=== PATIENT | male | born 1980 | race Caucasian/White ===

== ENCOUNTER 2018-09-16 20:15 | Inpatient (IN) | payer MEDICAID, OTHER ==
[~2018-09-16] VITALS: Ht 172.7 cm; Wt 72.2 kg
[2018-09-16] MEDS ORDERED: ONDANSETRON 2MG/ML, 2ML IVPush ONE (20:30)
[2018-09-16] MEDS ORDERED: SODIUM CHLORIDE 0.9% 1,000ML IVBOLUS ONE (20:30)
[2018-09-16] MEDS ORDERED: MORPHINE SULFATE 4 MG/ML, 1ML ONE ×2 (20:35→22:18)
[2018-09-16] MEDS ORDERED: ONDANSETRON 2MG/ML, 2ML ONE (20:35)
[2018-09-16] MEDS: MORPHINE SULFATE 4 MG/ML, 1ML IVPush PRN ×2 (20:41→22:20)
[2018-09-16 20:49] LABS: BASOPHILS # (AUTO) 0.05 x10^3/uL (0-0.1); BASOPHILS % (AUTO) 1 % (0-1); EOSINOPHILS # (AUTO) 0.07 x10^3/uL (0-0.4); EOSINOPHILS % (AUTO) 1 % (1-7); LYMPHOCYTES # (AUTO) 2.51 x10^3/uL (1-3.4); LYMPHOCYTES % (AUTO) 30 % (22-44); MD NO; MEAN CORPUSCULAR HGB CONC 34.1 g/dL (33.2-36.2); MEAN PLATELET VOLUME 9.4 fL (7.4-10.4); MONOCYTES # (AUTO) 0.59 x10^3/uL (0.2-0.8); MONOCYTES % (AUTO) 7 % (2-9); NEUTROPHILS # (AUTO) 5.11 x10^3/uL (1.8-6.8); NEUTROPHILS % (AUTO) 61 % (42-75); O2 FLOW 0 L/min; PH, VENOUS 7.276 pH (7.320-7.420); PLATELET COUNT 252 x10^3/uL (130-400); RED BLOOD COUNT 4.76 x10^6/uL (4.38-5.82); RED CELL DISTRIBUTION WIDTH 13.9 % (9.4-14.8)
[2018-09-16] MEDS ORDERED: INSU100V8 SQ (20:54)
[2018-09-16] MEDS ORDERED: INSU100C5 SQ-INSULIN (20:54)
[2018-09-16 21:03] LABS: ALANINE AMINOTRANSFERASE 50 U/L (12-78); ALBUMIN 3.4 g/dL (3.4-5.0); ANION GAP 7 mmol/L (5-15); CALCIUM 8.1 mg/dL (8.5-10.1); CHLORIDE 105 mmol/L (98-107)
[2018-09-16 21:05] LABS: ACETONE, SERUM Negative (Negative); ALKALINE PHOSPHATASE 169 U/L (45-117); BILIRUBIN,TOTAL 0.3 mg/dL (0.2-1.0)
[2018-09-16] MEDS ORDERED: INSULIN REGULAR 100 UNITS/ML, 3ML VIAL ONE (21:18)
[2018-09-16] MEDS ORDERED: INSULIN REGULAR 100 UNITS/ML, 3ML VIAL IVPush ONE (21:30)
[2018-09-16 22:16] LABS: MICROSCOPIC NOT IND
[2018-09-16 22:22] LABS: CULTURE INDICATED? NO
[2018-09-17 00:22] VITALS: BP 116/74
[2018-09-17] MEDS ORDERED: POLYETHYLENE GLYCOL 17 GM PACKET PO PRN (00:30)
[2018-09-17] MEDS ORDERED: INSULIN GLARGINE 100 UNITS/ML, PEN SQ-INSULIN SCH ×2 (00:30→21:00)
[2018-09-17] MEDS ORDERED: ONDANSETRON ODT 4 MG PO PRN (00:30)
[2018-09-17] MEDS ORDERED: hydrALAzine 20 MG/ML, 1ML IVPush PRN (00:30)
[2018-09-17] MEDS ORDERED: DEXTROSE 50%, 50ML SYRINGE IVPush PRN (00:30)
[2018-09-17] MEDS ORDERED: PROMETHAZINE 25 MG/ML, 1ML IM PRN (00:30)
[2018-09-17] MEDS ORDERED: GLUCAGON 1 MG IM PRN (00:30)
[2018-09-17] MEDS ORDERED: ONDANSETRON 2MG/ML, 2ML IVPush PRN (00:30)
[2018-09-17] MEDS ORDERED: BISACODYL 10 MG SUPP PR PRN (00:30)
[2018-09-17] MEDS ORDERED: DOCUSATE 100 MG CAPSULE PO PRN (00:30)
[2018-09-17] MEDS ORDERED: DEXTROSE 4 GM TAB.CHEW PO PRN (00:30)
[2018-09-17] MEDS: ACETAMINOPHEN 325 MG TABLET PO PRN ×2 (01:30→05:09)
[2018-09-17] MEDS: SENNA/DOCUSATE TABLET PO SCH ×2 (01:30→09:44)
[2018-09-17] MEDS: SODIUM CHLORIDE 0.9% 1,000 ML IV SCH ×2 (01:30→09:44)
[2018-09-17] MEDS: HEPARIN 5,000 UNITS/ML, 1ML SQ SCH ×3 (01:49→16:30)
[2018-09-17 01:56] LABS: FREE T4 (FREE THYROXINE) 0.99 ng/dL (0.76-1.46); THYROID STIMULATING HORMONE 2.62 mIU/L (0.358-3.740)
[2018-09-17 05:53] LABS: BASOPHILS # (AUTO) 0.08 x10^3/uL (0-0.1); BASOPHILS % (AUTO) 1 % (0-1); EOSINOPHILS # (AUTO) 0.13 x10^3/uL (0-0.4); EOSINOPHILS % (AUTO) 2 % (1-7); LYMPHOCYTES # (AUTO) 3.04 x10^3/uL (1-3.4); LYMPHOCYTES % (AUTO) 35 % (22-44); MD NO; MEAN CORPUSCULAR HEMOGLOBIN 30.3 pg (27.5-34.5); MEAN CORPUSCULAR HGB CONC 34.5 g/dL (33.2-36.2); MEAN CORPUSCULAR VOLUME 87.6 fL (81-97); MEAN PLATELET VOLUME 9.2 fL (7.4-10.4); MONOCYTES # (AUTO) 0.64 x10^3/uL (0.2-0.8); MONOCYTES % (AUTO) 8 % (2-9); NEUTROPHILS # (AUTO) 4.72 x10^3/uL (1.8-6.8); NEUTROPHILS % (AUTO) 55 % (42-75); PLATELET COUNT 228 x10^3/uL (130-400); RED BLOOD COUNT 4.52 x10^6/uL (4.38-5.82); RED CELL DISTRIBUTION WIDTH 13.8 % (9.4-14.8)
[2018-09-17 06:08] LABS: ALANINE AMINOTRANSFERASE 42 U/L (12-78); ALBUMIN 3.2 g/dL (3.4-5.0); ANION GAP 7 mmol/L (5-15); CALCIUM 8.3 mg/dL (8.5-10.1); CHLORIDE 105 mmol/L (98-107); CHOLESTEROL, TOTAL 162 mg/dL (140-239); CREATININE 0.74 mg/dL (0.7-1.3)
[2018-09-17 06:10] LABS: ALKALINE PHOSPHATASE 123 U/L (45-117); BILIRUBIN,TOTAL 0.3 mg/dL (0.2-1.0); TOTAL PROTEIN 6.4 g/dL (6.4-8.2); TRIGLYCERIDES 123 mg/dL (50-200)
[2018-09-17 06:11] LABS: CHOL/HDL RATIO 3.5; HDL CHOL % 28 % (26-37); HDL CHOLESTEROL (DIRECT) 46 mg/dL (40-60); LDL CHOLESTEROL,CALCULATED 91 mg/dL (54-169); VLDL CHOLESTEROL 25 mg/dL (0-25)
[2018-09-17] MEDS: OXYcodone/APAP 5/325MG TABLET PO PRN ×3 (06:20→20:40)
[2018-09-17] MEDS: INSULIN LISPRO 100 UNITS/ML, PEN SQ-INSULIN SCH ×4 (07:36→21:32)
[2018-09-17 07:52] VITALS: BP 130/86
[2018-09-17] MEDS: SODIUM CHLORIDE FLUSH 10ML SYR IVF SCH ×2 (09:00→21:32)
[2018-09-17] MEDS ORDERED: INSULIN GLARGINE 100 UNITS/ML, PEN SQ-INSULIN ONE (10:30)
[2018-09-17 14:01] VITALS: BP 131/85
[2018-09-17] MEDS: KETOROLAC 30 MG/1 ML IVPush PRN ×2 (14:41→23:28)
[2018-09-17 18:52] VITALS: BP 121/78
[2018-09-18 00:15] VITALS: BP 127/85
[2018-09-18] MEDS: OXYcodone/APAP 5/325MG TABLET PO PRN ×3 (00:40→13:11)
[2018-09-18] MEDS: HEPARIN 5,000 UNITS/ML, 1ML SQ SCH ×2 (00:40→08:28)
[2018-09-18] MEDS: KETOROLAC 30 MG/1 ML IVPush PRN ×2 (06:32→13:11)
[2018-09-18 07:36] VITALS: BP 133/88
[2018-09-18] MEDS: INSULIN LISPRO 100 UNITS/ML, PEN SQ-INSULIN SCH ×2 (07:58→11:09)
[2018-09-18] MEDS: SODIUM CHLORIDE FLUSH 10ML SYR IVF SCH (09:00)
[2018-09-18] MEDS: SENNA/DOCUSATE TABLET PO SCH (09:38)
[2018-09-18] MEDS ORDERED: INSU100I13 SQ-INSULIN (10:41)
[2018-09-18] MEDS ORDERED: INSU100C SQ-INSULIN (10:41)
[2018-09-18] MEDS ORDERED: IBUP-1221 PO (10:41)
[2018-09-18 13:09] VITALS: BP 136/86
== END 2018-09-18 14:15 | DRG 639 ==
LOC: ED 20:33 → EDIP 21:58 → 4NOR 23:49
PROVIDERS: ADMIT Internal Medicine; ATTEND Internal Medicine
DX: E10.65 Type 1 diabetes mellitus with hyperglycemia (principal); K59.00 Constipation, unspecified; I10 Essential (primary) hypertension; N20.0 Calculus of kidney; R33.9 Retention of urine, unspecified; R01.1 Cardiac murmur, unspecified; E10.40 Type 1 diabetes mellitus with diabetic neuropathy, unspecified; Z82.3 Family history of stroke; Z79.4 Long term (current) use of insulin; Z83.3 Family history of diabetes mellitus; Z87.442 Personal history of urinary calculi; Z87.891 Personal history of nicotine dependence
CPT/HCPCS: 36415; 71045; 74176; 80053; 80061; 81003; 82010; 82803; 82962; 83036; 83690; 83735; 83930; 84100; 84439; 84443; 85025; 93005; 96374; 96375; 96376; G0378; J1644; J1885; J2405; Q0162; J1815; J7030

== ENCOUNTER 2018-10-19 18:11 | Inpatient (IN) | payer MEDICAID, OTHER ==
[~2018-10-19] VITALS: Ht 172.7 cm; Wt 70.6 kg
[~2018-10-19 18:11] MED LIST: IBUP-1221 PO; INSU100C SQ-INSULIN; INSU100C5 SQ-INSULIN; INSU100I13 SQ-INSULIN; INSU100V8 SQ
[2018-10-19] MEDS ORDERED: SODIUM CHLORIDE FLUSH 10ML SYR IVF ONE (18:30)
[2018-10-19] MEDS ORDERED: LIDOCAINE 1%, 10ML INFIL ONE (18:30)
[2018-10-19] MEDS ORDERED: DIPH,PERTUSS(ACELL),TET VAC/PF 0.5 ML IM-VACC ONE ×2 (18:30→21:31)
[2018-10-19] MEDS ORDERED: SODIUM CHLORIDE 0.9% 1,000ML IVBOLUS ONE ×2 (18:30→21:30)
--- NOTE | 2018-10-19 18:39 | NUR ---
VBG ON GLUCOMETER READING TO HIGH TO READ.
[2018-10-19 18:41] LABS: PH, VENOUS 7.377 pH (7.320-7.420)
[2018-10-19 18:43] LABS: BASOPHILS # (AUTO) 0.03 x10^3/uL (0-0.1); BASOPHILS % (AUTO) 0 % (0-1); EOSINOPHILS # (AUTO) 0.09 x10^3/uL (0-0.4); EOSINOPHILS % (AUTO) 1 % (1-7); LYMPHOCYTES # (AUTO) 2.25 x10^3/uL (1-3.4); LYMPHOCYTES % (AUTO) 24 % (22-44); MD NO; MEAN CORPUSCULAR HEMOGLOBIN 29.8 pg (27.5-34.5); MEAN CORPUSCULAR HGB CONC 34.4 g/dL (33.2-36.2); MEAN CORPUSCULAR VOLUME 86.4 fL (81-97); MEAN PLATELET VOLUME 9.8 fL (7.4-10.4); MONOCYTES % (AUTO) 7 % (2-9); NEUTROPHILS # (AUTO) 6.27 x10^3/uL (1.8-6.8); NEUTROPHILS % (AUTO) 68 % (42-75); O2 FLOW ROOM AIR L/min; PLATELET COUNT 252 x10^3/uL (130-400); RED BLOOD COUNT 5.18 x10^6/uL (4.38-5.82); RED CELL DISTRIBUTION WIDTH 13.6 % (9.4-14.8)
--- NOTE | 2018-10-19 18:43 | NUR ---
PT ARRIVES FROM HOME TODAY WITH INCREASED BG AND IN PAIN. PT REPORTS FEELING ILL FOR A FEW DAYS AND TODAY HIS PAIN IS WORSE AND IS HAVING BODY ACHES MORE OFTEN. PT REPROTS HE IS A TYPE 1 DIABETIC INSULIN NOT ON A PUMP CONTROLLED. PT REPORTS TAKING MEDICATIONS PERSCRIBED. PT CONNECTED TO MONITORS AND CALL LIGHT IN REACH. AWIAITNG FURTHER ORDERS.
[2018-10-19 18:55] LABS: ALANINE AMINOTRANSFERASE 27 U/L (12-78); ALBUMIN 3.4 g/dL (3.4-5.0); ANION GAP 5 mmol/L (5-15); CALCIUM 8.6 mg/dL (8.5-10.1); CHLORIDE 98 mmol/L (98-107); CREATININE 1.21 mg/dL (0.7-1.3)
[2018-10-19 18:57] LABS: ALKALINE PHOSPHATASE 174 U/L (45-117); BILIRUBIN,TOTAL 0.3 mg/dL (0.2-1.0); TOTAL PROTEIN 7.2 g/dL (6.4-8.2)
[2018-10-19] MEDS ORDERED: ONDANSETRON 2MG/ML, 2ML ONE (19:19)
[2018-10-19] MEDS ORDERED: MORPHINE SULFATE 4 MG/ML, 1ML ONE ×2 (19:19→21:30)
[2018-10-19] MEDS ORDERED: LIDOCAINE-MPF 1%, 5ML ONE (19:20)
[2018-10-19] MEDS: MORPHINE SULFATE 4 MG/ML, 1ML IV PRN ×2 (19:26→21:30)
[2018-10-19 19:28] LABS: ACETONE, SERUM Trace (10mg/dL) mg/dL (Negative)
[2018-10-19] MEDS ORDERED: ONDANSETRON 2MG/ML, 2ML IVPush ONE (19:30)
[2018-10-19] MEDS ORDERED: LIDOCAINE-MPF 1%, 5ML INFIL ONE (19:30)
[2018-10-19] MEDS ORDERED: INSULIN REGULAR 100 UNITS/ML, 3ML VIAL SQ-INSULIN ONE (19:30)
[2018-10-19] MEDS ORDERED: INSULIN REGULAR 100 UNITS/ML, 3ML VIAL ONE (19:33)
[2018-10-19 19:36] LABS: MICROSCOPIC NOT IND
[2018-10-19 19:38] LABS: CULTURE INDICATED? NO
[2018-10-19] MEDS ORDERED: INSULIN REGULAR 100 UNITS/ML, 3ML VIAL IVPush ONE (20:00)
--- NOTE | 2018-10-19 20:19 | NUR ---
REPORT TO LATANYA BROWN
--- NOTE | 2018-10-19 20:20 | NUR ---
Report from KEVIN Ly. Pt sleeping in [facility] at this time. NAD noted. Will continue to monitor.
--- NOTE | 2018-10-19 21:11 | NUR ---
FSBS completed. FSBS of 576. PAC aware of pt's continued elevated BS. Awaiting further orders.
--- NOTE | 2018-10-19 21:40 | NUR ---
PT MEDICATED FOR INCREASED MONZON PAIN. IVF STARTED. TETNUS SHOT GIVEN.
--- NOTE | 2018-10-19 22:16 | NUR ---
REPORT TO KEVIN HARMAN.
--- NOTE | 2018-10-19 22:35 | NUR ---
RECEIVED BEDSIDE REPORT FROM LATANYA BROWN. CARE ASSUMED. PT AND SIGNIFICANT OTHER LAYING IN BED TOGTHER. FSBS CHECKED, RESULT 568. CARLOS SAN AT BEDSIDE, AWARE, DISCUSSED FSBS WITH CARLOS SAN AND DR. PATEL, AWARE, AWAITING ADDITIONAL ORDERS. ALL MONITORS IN PLACE. VSS. SR ON MONITOR. PT A&OX4. CARLOS SAN REMAINS AT BEDSIDE. PT REQUESTING PAIN MEDICATION FROM CARLOS SAN FOR HEADACHE AND MOUTH PAIN, NO ORDERS RECEIVED AT THIS TIME. CALL LIGHT IN REACH. FALL PRECAUTIONS IN PLACE.
--- NOTE | 2018-10-19 23:15 | NUR ---
PT UP FOR RECHECK, DISCUSSED POC ANDRA SAN NO NEW ORDERS RECEIVED.
--- NOTE | 2018-10-19 23:48 | NUR ---
FSBS RECHECKED PER DR. PATEL, RESULTS 542, DISCUSSED WITH DR. PATEL, AWARE. AWAITING ADDITIONAL ORDERS. PT UP FOR RECHECK. VSS. CALL LIGHT IN REACH. PT CONTINUES TO REQUEST PAIN MEDICATION FOR 8-10/10 MOUTH AND MONZON PAIN, DISCUSSED WITH DR. PATEL, NO NEW ORDERS RECEIVED. CALL LIGHT IN REACH.
[2018-10-20] MEDS ORDERED: PENICILLIN VK 500MG TABLET PO ONE
[2018-10-20] MEDS ORDERED: KETOROLAC 30 MG/1 ML IVPush ONE
--- NOTE | 2018-10-20 | NUR ---
DR. PATEL AT BEDSIDE DISCUSSING POC, PT TO BE ADMITTED TO HOSPITAL, AGREES TO POC AND VERBALIZED UNDERSTANDING. PT REQUESTING PAIN MEDICATION, AWAITING ORDERS FROM DR. PATEL. VSS. CALL LIGHT IN REACH. Q1HR FSBS DISCONTINUED PER DR. PATEL AND CARLOS SAN AT THIS TIME.
[2018-10-20] MEDS ORDERED: KETOROLAC 30 MG/1 ML ONE (00:12)
[2018-10-20] MEDS ORDERED: PENICILLIN VK 500MG TABLET ONE (00:12)
--- NOTE | 2018-10-20 00:28 | NUR ---
PATIENT MEDICATED FOR PAIN. PA HOSPITALIST AT BEDSIDE FOR PATIENT EVALUATION.
[2018-10-20] MEDS ORDERED: INSULIN LISPRO 100 UNITS/ML, PEN SQ-INSULIN SCH ×2 (00:30→01:00)
[2018-10-20] MEDS ORDERED: KETOROLAC 30 MG/1 ML IV PRN (00:30)
[2018-10-20] MEDS ORDERED: LIDODERM 5% PATCH TD PRN (00:30)
[2018-10-20] MEDS ORDERED: DOCUSATE 100 MG CAPSULE PO PRN (00:30)
[2018-10-20] MEDS ORDERED: GABAPENTIN 300 MG CAPSULE PO PRN (00:30)
[2018-10-20] MEDS ORDERED: ACETAMINOPHEN 325 MG TABLET PO PRN (00:30)
[2018-10-20] MEDS ORDERED: hydrALAzine 20 MG/ML, 1ML IVPush PRN (00:30)
[2018-10-20] MEDS ORDERED: ENOXAPARIN 40 MG/0.4 ML SQ SCH (00:30)
[2018-10-20] MEDS ORDERED: BUTALB/APAP/CAFFEINE 50MG/325MG/40MG PO PRN (00:30)
[2018-10-20] MEDS ORDERED: DIPHENHYDRAMINE 50 MG CAPSULE PO PRN (00:30)
[2018-10-20] MEDS ORDERED: ONDANSETRON ODT 4 MG PO PRN (00:30)
--- NOTE | 2018-10-20 00:47 | NUR ---
ROOM 445 RECEIVED, REPORT CALLED TO KASSIE BROWN AT THIS TIME. PT READY FOR TRANSPORT.
[2018-10-20 01:15] VITALS: BP 143/83
[2018-10-20] MEDS ORDERED: INSULIN GLARGINE 100 UNITS/ML, PEN SQ-INSULIN ONE (01:30)
[2018-10-20] MEDS: INSULIN LISPRO 100 UNITS/ML, PEN SQ-INSULIN SCH ×3 (02:00→09:21)
[2018-10-20] MEDS: SODIUM CHLORIDE 0.9% 1,000 ML IV SCH ×2 (02:01→07:08)
[2018-10-20 02:09] VITALS: BP 143/83
[2018-10-20] MEDS ORDERED: PENICILLIN VK 500MG TABLET PO SCH (06:00)
[2018-10-20 06:19] VITALS: BP 158/74
[2018-10-20 08:23] LABS: ALANINE AMINOTRANSFERASE 25 U/L (12-78); ALBUMIN 2.9 g/dL (3.4-5.0); ANION GAP 7 mmol/L (5-15); CALCIUM 8.2 mg/dL (8.5-10.1); CHLORIDE 108 mmol/L (98-107); CREATININE 0.64 mg/dL (0.7-1.3)
[2018-10-20 08:25] LABS: ALKALINE PHOSPHATASE 128 U/L (45-117); BILIRUBIN,TOTAL 0.2 mg/dL (0.2-1.0); TOTAL PROTEIN 6.2 g/dL (6.4-8.2)
[2018-10-20] MEDS ORDERED: DEXTROSE 4 GM TAB.CHEW PO PRN (08:30)
[2018-10-20] MEDS ORDERED: DEXTROSE 50%, 50ML SYRINGE IVPush PRN (08:30)
[2018-10-20] MEDS ORDERED: GLUCAGON 1 MG IM PRN (08:30)
[2018-10-20 08:58] LABS: BASOPHILS # (AUTO) 0.06 x10^3/uL (0-0.1); BASOPHILS % (AUTO) 1 % (0-1); EOSINOPHILS # (AUTO) 0.14 x10^3/uL (0-0.4); EOSINOPHILS % (AUTO) 2 % (1-7); LYMPHOCYTES # (AUTO) 2.75 x10^3/uL (1-3.4); LYMPHOCYTES % (AUTO) 40 % (22-44); MD NO; MEAN CORPUSCULAR HEMOGLOBIN 29.3 pg (27.5-34.5); MEAN CORPUSCULAR HGB CONC 34.6 g/dL (33.2-36.2); MEAN CORPUSCULAR VOLUME 84.9 fL (81-97); MEAN PLATELET VOLUME 9.7 fL (7.4-10.4); MONOCYTES # (AUTO) 0.62 x10^3/uL (0.2-0.8); MONOCYTES % (AUTO) 9 % (2-9); NEUTROPHILS # (AUTO) 3.35 x10^3/uL (1.8-6.8); NEUTROPHILS % (AUTO) 48 % (42-75); PLATELET COUNT 239 x10^3/uL (130-400); RED BLOOD COUNT 4.99 x10^6/uL (4.38-5.82); RED CELL DISTRIBUTION WIDTH 13.4 % (9.4-14.8)
[2018-10-20] MEDS ORDERED: SODIUM CHLORIDE FLUSH 10ML SYR IVF SCH (09:00)
[2018-10-20] MEDS ORDERED: INSULIN GLARGINE 100 UNITS/ML, PEN SQ-INSULIN SCH ×2 (09:00)
== END 2018-10-20 11:25 | disposition left against medical advice (07) | DRG 639 ==
LOC: ED 22:25 → EDIP 23:58 → 4NOR 10-20 01:07
PROVIDERS: ADMIT Internal Medicine; ATTEND Internal Medicine
DX: E10.10 Type 1 diabetes mellitus with ketoacidosis without coma (principal); E10.40 Type 1 diabetes mellitus with diabetic neuropathy, unspecified; G89.29 Other chronic pain; M54.5 Low back pain; F32.9 Major depressive disorder, single episode, unspecified; I10 Essential (primary) hypertension; K04.7 Periapical abscess without sinus; Z53.21 Procedure and treatment not carried out due to patient leaving prior to being seen by health care provider; Z79.4 Long term (current) use of insulin; Z82.3 Family history of stroke; Z83.3 Family history of diabetes mellitus; Z87.442 Personal history of urinary calculi; Z87.891 Personal history of nicotine dependence
CPT/HCPCS: 36415; 70450; 74018; 80053; 81003; 82010; 82803; 82962; 83690; 83930; 85025; 90715; 96361; 96374; 96375; 99285; J1885; J2405; J1815; J7030